=== PATIENT | male | born 1975 | race Caucasian/White ===

== ENCOUNTER → 2020-09-27 | Outpatient (CLI) | payer OTHER ==
--- NOTE | 2020-10-11 11:31 | PF ---
[address] [address] PULMONARY FUNCTION REPORT Name: FLOR ARRIAGA Room: [facility]..#: [id number] Admission: 09/27/20 Attend Phys: Lopez Mckee MD Discharge: Date of : 71 Report #: [id number] THIS REPORT FOR: cc: Soy Hernandez MD, Daniel W. MD Pervez, Adeel MD ~ DOC #: [id number] Larry Osborne MD DATE OF VISIT: 09/27/2020 Only a spirometry was performed. The FEV1/FVC ratio is normal at 73% with FVC normal at 104%. The FEV1 is also normal at 94%. The FEF 25-75 was normal at 87%. After the administration of a bronchodilator, the FEV1 does increase by 12%. The patient's post-bronchodilator FEV1 is noted to be 4.53 liters. There is some upward concavity of the flow volume loop noted. IMPRESSION: The spirometry is normal. There is a 12% increase in FEV1 after the administration of a bronchodilator noted. Flow volume loop is also slightly concave upwards. These could be normal variants or could indicate minimal underlying obstruction. Clinical correlation is advised. In case further evaluation is clinically indicated, then full pulmonary function tests with lung volumes can be considered. MD MIKE Turcios/KATERINA <ELECTRONICALLY SIGNED> By: Larry Osborne MD 10/11/20 1131 [id number] teresa Osborne MD /nt
== END ==
LOC: M.PUL 11:27
PROVIDERS: ATTEND Orthopaedic Surgery
DX: J44.0 Chronic obstructive pulmonary disease with (acute) lower respiratory infection (principal)